=== PATIENT | male | born 1995 | race Caucasian/White ===

== ENCOUNTER 2023-07-03 09:05 | Day surgery (SDC) | payer BC, SELFPAY ==
--- NOTE | 2023-07-03 | ESO_PTH ---
PATHOLOGY RESULTS PATIENT: DANIELLE OTTO LOC: EN U#:[id number] AGE/SX: 27/M ROOM: RE07/03/[address]: Dr. David Juarez MD : 1995 BED: DIS: 07/03/2023 SPEC #: [id number] RECD: 07/03/23 12:58 STATUS: REG MAYRA #: [id number] SHABNAM: 07/03/23 00:[address]: David Juarez DEPT: SURGICAL PATHOLOGY RECD BY: Christiano Rizo ENTERED: 07/03/23 12:58 SP TYPE: ESOPH BX Tissues: Esophagus, NOS Procedures: Surgery Specimen Level IV HEADER OPERATION: EGD with biopsy PRE-OP DIAGNOSIS: Dysphagia TISSUE SUBMITTED: Mid esophagus biopsy for eosinophilic esophagitis MICROSCOPIC DIAGNOSIS Mid esophagus, biopsy: Eosinophilic esophagitis. See comment. AM:concepción 07/04/2023 COMMENT Eosinophils number greater than 20 per high power field. Clinical correlation is suggested. MICROSCOPIC DESCRIPTION Slides are reviewed. GROSS DESCRIPTION Received in fixative is one container labeled with the patient's name and designated mid esophagus biopsy. The specimen consists of multiple irregular fragments of light jeter soft tissue that in aggregate measure 0.5 x 0.5 x 0.1 cm. The specimen is totally submitted in one cassette. / SJ:rg 07/03/2023 TC:3 CPT: 68329
[2023-07-03] MEDS: Lactated Ringers 1,000 ML 15 ML IV (09:36)
[2023-07-03 09:37] VITALS: BP 138/95; PULSE 82; RESP 18; TEMP 36.5; O2SAT 100; BMI 26.6
--- NOTE | 2023-07-03 09:58 | PCM.HP.BLA ---
History and Physical Date of Admission: 07/03/23 Intake Vital Signs 06/13/2411:58 Height 5 ft 10 in Weight: 190 lb BMI 27.2 BP 127/85 H Blood Pressure Location Rt brachial Position Sitting Respiration 18 Pulse 69 Pulse Source Monitor Temp 97.4 F L Temp Source Temporal Pulse Oximetry (%) 97 Oxygen Delivery Method room air Intake Visit Reasons: Dysphagia Chief Complaint: dysphagia Is patient in pain?: No Allergies No Known Allergies Allergy (Unverified 06/13/23 12:59) Medications bupropion HCl 150 mg tablet,12 hr sustained-release 150 mg PO BID 06/13/23 [History Confirmed 06/13/23] PFSH Surgical History (Updated 06/13/23 @ 12:57 by Florencia Hinson LPN) History of surgery on lower extremity Family History (Updated 06/13/23 @ 13:06 by Florencia Hinson LPN) Grandmother Breast cancerAunt Breast cancerGrandfather Cancer bone/ brain/ blood AAA (abdominal aortic aneurysm)Father Hypertension AAA (abdominal aortic aneurysm) HPI HPI HPI: Patient is a 27-year-old male here with dysphagia. He said this is been going on for about a year. He says that it happens more with bread or thicker foods. Occasionally does happen with liquids but he says it is infrequent. He does not have GERD at baseline and does not take a PPI. ROS General General: No weight change HEENT HEENT: Yes difficulty swallowing Endo Endocrine: No diabetes mellitus Skin Skin: Yes rash Breast Breast: No left breast lump Musc Musculoskeletal: No back problems Cardio Cardiovascular: No murmur or pacemaker Psych Psychiatric: Yes depression Exam Const General: cooperative Orientation: alert and oriented x3 HENMT Head: normal to inspection Neck Neck: normal visual inspection and full ROM Chest Chest palpation & inspection: normal inspection of the chest Resp Effort & Inspection: normal respiratory effort Auscultation: clear to auscultation bilaterally Cardio Rate: regular rate Rhythm: regular rhythm GI Inspection: non-distended Palpation: soft and nontender Skin General: no rashes or lesions noted Neuro General: patient alert and patient oriented x3 Extrem General: full ROM Psych Appearance: grossly normal Mental Status: mental status grossly normal Assessment and Plan Assessment and Plan (1) Dysphagia: Qualifiers: Dysphagia type: esophageal phase Qualified Code(s): R13.19 - Other dysphagia Plan: Patient is having dysphagia and feels like food is sticking near his GE junction. He says it sticks and then it releases and lets go or he has to drink and then throw it up. This has been going on for about a year. Patient does not think he has any reflux at baseline. I discussed performing EGD to evaluate with possible dilation. I discussed the increased risk of bleeding and perforation with dilation. I explained endoscopy in detail to the patient. I explained the risks including but not limited to stroke or heart attack with anesthesia, perforation of the GI tract, bleeding, infection. I explained that any of these could necessitate further emergency surgery. The patient understands and all questions were answered sufficiently. The patient wishes to proceed with procedure. The patient also has pectus excavatum. Unsure if there is extrinsic compression causing dysphagia. If the EGD is normal I will order swallow studies. David Juarez MD Pager: [facility] [address] [place] [address], [address] [place] [address] Office: I have examined the patient and the H&P has been reviewed. There are no clinical changes since date of exam.
[2023-07-03 10:26] VITALS: BP 119/77; BP 138/95; PULSE 68; RESP 16; TEMP 36.3; O2SAT 94
--- NOTE | 2023-07-03 10:28 | PN_ITS ---
Progress Note Patient had EGD today. There is no stenosis in the esophagus but there were circumferential rings and furrows in the esophagus suggesting eosinophilic esophagitis. The mid esophagus was biopsied. I discussed this with the patient and his mother. If the patient's esophageal biopsies are consistent with eosinophilic esophagitis I will send him to an document imaging manager for evaluation. If they do not I will order manometry to differentiate if this is being caused by extrinsic compression from his pectus excavatum. David Juarez MD Pager: [facility] [address] [place] [address], [address] [place] [address] Office:
--- NOTE | 2023-07-03 10:28 | OP.EGD_ITS ---
Patient Name: Suimt Farrell Procedure Date: 07/03/2023 10:05 AM Date of : 1995 Age: 27 Procedure: Upper GI endoscopy Indications: Dysphagia Providers: David Juarez MD Medicines: Propofol per Anesthesia Patient Profile: This is a 27 year old male. Complications: No immediate complications. Estimated blood loss: Minimal. Procedure: Pre-Anesthesia Assessment: - Prior to the procedure, a History and Physical was performed, and patient medications and allergies were reviewed. The patient's tolerance of previous anesthesia was also reviewed. The risks and benefits of the procedure and the sedation options and risks were discussed with the patient. All questions were answered, and informed consent was obtained. Prior Anticoagulants: The patient has taken no anticoagulant or antiplatelet agents. After reviewing the risks and benefits, the patient was deemed in satisfactory condition to undergo the procedure. After obtaining informed consent, the endoscope was passed under direct vision. Throughout the procedure, the patient's blood pressure, pulse, and oxygen saturations were monitored continuously. The gastroscope was introduced through the mouth, and advanced to the third part of duodenum. The upper GI endoscopy was accomplished without difficulty. The patient tolerated the procedure well. Scope In: 10:16:47 AM Scope Out: 10:20:36 AM Total Procedure Duration Time 0 hours 3 minutes 49 seconds Findings: Mucosal changes including ringed esophagus and longitudinal furrows were found in the mid esophagus. Esophageal findings were graded using the Eosinophilic Esophagitis Endoscopic Reference Score (EoE-EREFS) as: Rings Grade 1 Mild (subtle circumferential ridges seen on esophageal distension), Furrows Grade 1 Mild (vertical lines without visible depth) and Stricture none (no stricture found). Biopsies were taken with a cold forceps for histology. Biopsies were taken with a cold forceps for histology. The stomach was normal. The examined duodenum was normal. Impression: - Esophageal mucosal changes suggestive of eosinophilic esophagitis. Biopsied. - Normal stomach. - Normal examined duodenum. Recommendation: - Discharge patient to home. - Resume previous diet. - Continue present medications. - Await pathology results. Procedure Code(s): --- Professional --- 88244, Esophagogastroduodenoscopy, flexible, transoral; with biopsy, single or multiple Diagnosis Code(s): --- Professional --- K22.89, Other specified disease of esophagus R13.10, Dysphagia, unspecified CPT copyright 2021 [employer]. All rights reserved. The codes documented in this report are preliminary and upon certified medical records coder review may be revised to meet current compliance requirements. David Juarez MD 07/03/2023 10:28:17 AM This report has been signed electronically. Number of Addenda: 0 Note Initiated On: 07/03/2023 10:05 AM
--- NOTE | 2023-07-03 10:29 | OP.CCLET_ITS ---
07/03/2023 Jey Mcdonald Re : Upper GI endoscopy procedure for Sumit Farrell Dear Makiel This procedure was performed on Monday, July 03, 2023. My impressions and recommendations are as follows: Impressions : - Esophageal mucosal changes suggestive of eosinophilic esophagitis. Biopsied. - Normal stomach. - Normal examined duodenum. Recommendations : - Discharge patient to home. - Resume previous diet. - Continue present medications. - Await pathology results. My findings are described in the full procedure note, which is enclosed. If I can be of further assistance, please feel free to contact me at Doctor phone number(s): , Work: . Sincerely, David Juarez MD 07/03/2023 10:28:17 AM This report has been signed electronically.
[2023-07-03 10:30] VITALS: BP 119/77; BP 138/95; PULSE 67; RESP 16; O2SAT 93
[2023-07-03 10:37] VITALS: BP 120/78; BP 138/95; PULSE 82; RESP 16; TEMP 36.8; O2SAT 96
[2023-07-03 11:03] VITALS: BP 138/95
== END 2023-07-03 11:28 | disposition home or self-care (01) ==
LOC: EN 09:14 → AC 09:15
PROVIDERS: PCP Nurse Practitioner Family; Referring Provider Nurse Practitioner Family; Visit Provider Surgery
PROC: 0DJ08ZZ Inspection of Upper Intestinal Tract, Via Natural or Artificial Opening Endoscopic (ICD-10-PCS; CPT 43235; principal; 2023-07-03 10:10)
DX: R13.19 Other dysphagia (principal); K22.89 Other specified disease of esophagus; K20.0 Eosinophilic esophagitis
CPT/HCPCS: 43239; 88305; J7120; J2405

== ENCOUNTER → 2024-05-27 | Outpatient (CLI) | payer BC, SELFPAY ==
[2024-05-27 12:10] LABS: Absolute Lymphocyte Count 1.46 X10^3/uL (0.83-4.51); Absolute Neutrophil Count 2.7 X10^3/uL (2.0-7.7); Basophil# 0.06 X10^3/uL; Basophil% 1.2 % (0-1); Eosinophil# 0.31 X10^3/uL; Eosinophils% 6.1 % (0-5); Hematocrit 45.3 % (40-54); Hemoglobin 15.3 g/dL (13.0-16.5); Lymphocyte # 1.46 X10^3/ul (0.83-4.51); Lymphocyte % 28.7 % (19-41); Mean Corp Hgb Conc 33.8 g/dL (32-36); Mean Corpuscular Hgb 29.4 pg (27.0-32.0); Mean Corpuscular Volume 86.9 fL (80-94); Mean Platelet Vol. 10.2 fl (6.2-12.0); Monocyte# 0.55 X10^3/uL; Monocyte% 10.8 % (0-10); NRBC Flagged by Analyzer 0 % (0-5); Neutrophil # 2.68 X10^3/uL (2.7-7.7); Neutrophil % 52.6 % (47-70); Platelet Count 315 K/mm3 (150-450); RBC Distribution Width CV 12.2 % (11.6-14.6); RBC Distribution Width SD 38.7 fl (35.1-43.9); Red Blood Count 5.21 M/mm3 (4.6-6.2); White Blood Count 5.1 K/mm3 (4.4-11.0)
[2024-05-27 14:06] LABS: ALB/GLOB Ratio 1.2 RATIO (0.9-2.4); AST(SGOT) 18 U/L (15-37); Alanine Aminotransfer ALT/SGPT 42 U/L (16-61); Albumin, Serum 4.1 g/dL (3.2-5.0); Alkaline Phosphatase 55 U/L (45-117); Anion Gap 6 (5-15); BUN 12 mg/dL (7-18); BUN/Creat Ratio 12.8 RATIO (10-20); Chloride 109 mmol/L (98-107); Cholesterol 191 mg/dL (200); Creatinine, Serum 0.94 mg/dL (0.70-1.30); EST Glomerular Filtration Rate 101 mL/min (>60); Est Glom Filt Rate - Afr Amer 122 mL/min (>60); Globulin 3.4 g/dL (2.2-4.2); Glucose 92 mg/dL (74-106); High Density Lipoprotein 58 mg/dL; Potassium 3.3 mmol/L (3.5-5.1); Protein, Total 7.5 g/dL (6.4-8.2); Sodium Level 142 mmol/L (136-145); Triglycerides 52 mg/dL; Very Low Density Lipoprotein 10 mg/dL (5-40)
[2024-05-31 12:08] LABS: Beef <0.10 kU/L (Class 0); Chocolate <0.10 kU/L (Class 0); Codfish <0.10 kU/L (Class 0); Corn <0.10 kU/L (Class 0); Egg, Whole 0.26 kU/L (Class 0/I); Milk (Cow) <0.10 kU/L (Class 0); Mussels <0.10 kU/L (Class 0); Peanut <0.10 kU/L (Class 0); Pork <0.10 kU/L (Class 0); Salmon <0.10 kU/L (Class 0); Shrimp <0.10 kU/L (Class 0); Soybean <0.10 kU/L (Class 0); Tuna <0.10 kU/L (Class 0); Wheat 0.92 kU/L (Class II)
== END | disposition home or self-care (01) ==
LOC: BFHLAB 10:02
PROVIDERS: PCP Nurse Practitioner Family; Referring Provider Nurse Practitioner Family; Visit Provider Nurse Practitioner Family
DX: Z00.01 Encounter for general adult medical examination with abnormal findings (principal); K20.0 Eosinophilic esophagitis
CPT/HCPCS: 36415; 80053; 80061; 85025; 86003; 86005